=== PATIENT | male | born 1955 | race Caucasian/White ===

== ENCOUNTER 2024-02-03 12:33 | Emergency (ER) | payer MEDICARE, SELFPAY ==
--- NOTE | ~2024-02-03 | XR_ITS ---
EXAMINATION: XR chest 2V DATE: 02/03/2024 13:07 INDICATION: Cough and shortness of breath. TECHNIQUE: Frontal and lateral views of the chest were obtained. COMPARISON: None. FINDINGS: A calcified left lung nodule is consistent with old granulomatous disease. There is no pneu monia, pleural effusion, or pneumothorax. The heart size is normal. There is a chronic compression fr acture in lumbar spine. IMPRESSION: 1. No acute cardiopulmonary disease. Reviewed, dictated and finalized at location A.
[2024-02-03 12:42] VITALS: BP 104/65; PULSE 80; RESP 20; TEMP 36.8; O2SAT 95
[2024-02-03 13:08] LABS: EDINFLUASCREEN Negative (Negative); EDINFLUBSCREEN Negative (Negative)
--- NOTE | 2024-02-03 20:51 | ED.GENADULT ---
HPI - General Adult General Chief complaint: Upper Respiratory Infection Stated complaint: poss walking pnuemonia Time Seen by Provider: 02/03/24 13:01 Source: patient, RN notes reviewed and old records reviewed Mode of arrival: ambulatory Limitations: no limitations History of Present Illness HPI narrative: 60-year-old male to [facility] with complaint of nasal congestion, chest congestion, nonproductive cough for 1 week. Patient states that his throat is sore from coughing so much. Patient concerned for pneumonia and requesting chest x-ray. Patient endorses 1 pack per day for nearly 60 years. Patient history hypertension, diabetes, high cholesterol. Patient denies shortness of breath, fever, abdominal pain, GI complaints, allergies, chest pain, ear pain, nasal drainage. Patient able to tolerate fluids by mouth. Patient resting in exam room in no acute distress. Respirations even and nonlabored. Cough present on exam. Related Data Home Medications Medication Instructions Recorded Confirmed blood sugar diagnostic (Accu-Chek 02/03/24 02/03/24 Yuliana Plus test strips) carvedilol 25 mg tablet mg 02/03/24 famotidine 40 mg tablet mg 02/03/24 glimepiride 4 mg tablet mg 02/03/24 levothyroxine 125 mcg tablet mcg 02/03/24 lisinopril 5 mg tablet mg 02/03/24 metformin 1,000 mg tablet mg 02/03/24 nateglinide 120 mg tablet mg 02/03/24 oxycodone-acetaminophen 10 mg-325 tablet 02/03/24 mg tablet rosuvastatin 40 mg tablet mg 02/03/24 tamsulosin 0.4 mg capsule mg PO 02/03/24 Allergies Allergy/AdvReac Type Severity Reaction Status Date / Time No Known Allergies Allergy Verified 02/03/24 12:53 Review of Systems Review of Systems: All systems reviewed & are unremarkable except as noted in HPI and below Constitutional: Constitutional: Reports no additional constitutional complaints Eyes: Eyes: Reports no additional eye complaints ENT: Reports as per HPI, Reports nasal congestion and Reports sore throat Cardiovascular: Cardiovascular: Reports no additional cardiovascular complaints, Denies chest pain and Denies dyspnea Respiratory: Respiratory: Reports no additional respiratory complaints, Reports chest congestion, Reports cough and Denies dyspnea Musculoskeletal: Musculoskeletal: Reports no additional musculoskeletal complaints Neurologic: Reports system reviewed and no additional complaints, except as documented Psychiatric: Psychiatric: Reports no additional psychiatric complaints PMFSH Comments At the time of my signature, I reviewed and agree with the nursing past medical, surgical, social, and family history. There is no relevant family history pertinent to the patient complaint. Exam Const: General: cooperative, comfortable, no acute distress, alert, ill appearing chronically, tired appearing, well nourished and obese; No acute distress or in distress Nutritional Appearance: well nourished Orientation/consciousness: patient oriented x3 Limitations: no limitations HENMT: Head: normal to inspection Ears: external ears normal Face/Nose/Sinus: Normal external nose present, Normal nares present, normal facial exam, No erythema and No edema Face and sinus: normal facial exam, no erythema and no edema Mouth: Yes Normal oral and palatal mucosa present Throat: posterior oropharynx abnormal erythema and postnasal drainage Eyes: General: appearance normal, both eyes and all related structures Neck: Neck: normal visual inspection, full ROM and no meningeal signs Lymphatic: no lymphadenopathy noted and no lymphedema noted Chest: Chest palpation & inspection: normal inspection of the chest Resp: Effort & Inspection: normal respiratory effort and able to speak in complete sentences Auscultation: crackles on the left and wheezes scattered wheezes Cardio: Jugular venous distension: no JVD Rate: regular rate Rhythm: regular rhythm Back/Spine/Pelvis: Cervical Spine: cervical ROM normal Skin: General
== END 2024-02-03 13:40 | disposition home or self-care (01) ==
PROVIDERS: Emergency Provider Nurse Practitioner Family
DX: J06.9 Acute upper respiratory infection, unspecified (principal); Z20.822 Contact with and (suspected) exposure to COVID-19; I10 Essential (primary) hypertension; E11.9 Type 2 diabetes mellitus without complications; E78.00 Pure hypercholesterolemia, unspecified
CPT/HCPCS: 71046; 87426; 87804; 99213; G0463

== ENCOUNTER 2024-03-25 10:27 | Emergency (ER) | payer MEDICARE, SELFPAY ==
[2024-03-25 10:32] VITALS: BP 150/89; PULSE 80; RESP 20; TEMP 36.4; O2SAT 98
--- NOTE | 2024-03-25 11:04 | ED_ITS ---
HPI - Skin/Abscess/Foreign Bdy General Chief complaint: Skin/Abscess/Foreign Body Stated complaint: Insect Bite/Left Leg Time Seen by Provider: 03/25/24 10:50 Source: patient, RN notes reviewed and old records reviewed Mode of arrival: ambulatory Limitations: no limitations History of Present Illness HPI narrative: 68 year old male presents to [facility] with complaints of what he believes are spider bites to his left upper thigh for the past few days. Patient reports that he has not had any fevers, denies any drainage from scattered red raised areas on left thigh denies any itching states his leg hurts. Patient has not applied any OTC medication to areas or taken any OTC medications for discomfort. He MD complaint: rash and insect bite/sting Onset (ago): day(s) (2) Location: LLE (thigh) Severity scale (1-10): 4 Treatments prior to arrival: none Related Data Home Medications Medication Instructions Recorded Confirmed blood sugar diagnostic (Accu-Chek 02/03/24 02/03/24 Yuliana Plus test strips) carvedilol 25 mg tablet mg 02/03/24 famotidine 40 mg tablet mg 02/03/24 glimepiride 4 mg tablet mg 02/03/24 levothyroxine 125 mcg tablet mcg 02/03/24 lisinopril 5 mg tablet mg 02/03/24 metformin 1,000 mg tablet mg 02/03/24 nateglinide 120 mg tablet mg 02/03/24 oxycodone-acetaminophen 10 mg-325 tablet 02/03/24 mg tablet rosuvastatin 40 mg tablet mg 02/03/24 tamsulosin 0.4 mg capsule mg PO 02/03/24 Allergies Allergy/AdvReac Type Severity Reaction Status Date / Time No Known Allergies Allergy Verified 02/03/24 12:53 Review of Systems Review of Systems: CONSTITUTIONAL: Denies fever, chills, or sweats. CARDIOVASCULAR: Denies chest pain, palpitations, or edema. RESPIRATORY: Denies cough or dyspnea. SKIN: Reports scattered lesions which are red raised circular lesion no pattern no vesicles or pustules no drainage. MUSCULOSKELETAL: Denies joint pain or myalgia. NEUROLOGIC: Denies headache, numbness, or weakness. All systems reviewed & are unremarkable except as noted in HPI and below PMFSH Past Medical History Medical History (Updated 03/26/24 @ 17:11 by Shahrzad Alves NP) Diabetes Elevated cholesterol Hypertension Hypothyroidism Social History Social History (Updated 03/26/24 @ 17:21 by Shahrzad Alves NP) Gender identity (if verbalized by the patient): Male Comments At time of signature, agree with nursing past medical, surgical, social and family history. There is no relevant family history pertinent to the presenting complaint Exam Narrative: GENERAL: Well-appearing, well-nourished, and in no acute distress. HEAD: Normocephalic, atraumatic. EYES: PERRLA, conjunctivae clear, and EOMI. ENT: Mucous membranes moist. Oropharynx without edema, erythema or lesions. NECK: Supple. No lymphadenopathy CHEST: Clear to auscultation. No respiratory distress. SAO2 98% on room air HEART: Regular rate and rhythm. SKIN: Warm, dry.? Red raised maculopapule lesions on left upper thigh no pustules or vesicles, not grouped or in pattern no drainage.denies itching states thigh is sore NEURO:? Alert and oriented x3. PSYCH: Normal mood and affect. Course Course Emergency Course: Patient is aware of diagnosis, understands and agrees to treatment plan.? Anticipatory guidance given.? Patient agrees to follow-up as directed and is aware of reasons to seek care at the emergency department. Portions of this record may have been created with voice recognition software Level of Care: Express Care Visit Vital Signs Vital signs: Vital Signs Temperature 36.4 C L 03/25/24 10:32 Pulse Rate 80 03/25/24 10:32 Respiratory Rate 20 03/25/24 10:32 Blood Pressure 150/89 H 03/25/24 10:32 Pulse Oximetry 98 03/25/24 10:32 Oxygen Delivery Room Air 03/25/24 10:32 Temperature 36.4 C L 03/25/24 10:32 Pulse Rate 80 03/25/24 10:32 Respiratory Rate 20 03/25/24 10:32 Blood Pressure 150/89 H 03/25/24 10:32 Pulse Oximetry 98 03/25/24 10:32 Oxygen Delivery Room Air 03/25/24 10:32 Reviewed MDM - Skin/Abscess/Foreign Bdy MDM Narrative Medical decision making narrative: Does not appear at this time to be erythema multiforme, bullous, SJS, TEN; no evidence at this time to suggest RMSF, endocarditis or Lyme disease; patient looks well, nontoxic and is tolerating oral intake; no neurologic signs or symptoms; no headache, photophobia or neck pain; afebrile; appropriate for initial outpatient treatment; discussed the importance of follow-up, patient agrees; question, viral exanthema, contact dermatitis, allergic dermatitis, eczema, urticaria. No soft palate or uvula edema, no tongue, lip edema or other mucosal involvement, no respiratory compromise, no stridor, no wheezing, no wheezing, no history of syncope, no hypotension, no nausea, vomiting, or diarrhea.? Instructed patient to go to nearest ER immediately for any worsening symptoms including but not limited to: fever, spreading rash, pain, sore throat, headache, dizziness, chest pain, trouble breathing, or any symptoms concerning to the patient. Differential Diagnosis Differential diagnosis: Likely urticaria, cellulitis, insect bites and contact dermatitis Medical Records Attestation: I reviewed the patient's medical records. Critical Care Time Critical Care Time Critical Care Time: No Discharge Plan Discharge Clinical Impression: Insect bite of thigh, left Qualifiers: Encounter type: initial encounter Qualified Code(s): S70.362A - Insect bite (nonvenomous), left thigh, initial encounter Patient Disposition: Home, Self-Care Condition: Stable Instructions: Antibiotic Form, Insect Bite or Sting (ED) Additional Instructions: Wash insect bite areas with warm water and liquid Dial soap twice daily and apply mupirocin ointment watch for increasing infection--redness, swelling, drainage Tylenol or ibuprofen for any fever pain Zyrtec or Claritin daily follow up with PCP in 7-10 days for a wound check recheck if develop fever, chills, increasing symptom Go to the ER if your symptoms become worse of if ANY new symptoms develop Antibiotic as ordered till complete If your symptoms persist, change or worsen significantly before you can contact your personal physician then please, without delay, go to the emergency department for further evaluation. Follow-up with PCP in 7-10 days or sooner if needed Follow up with PCP soon in regards to your blood pressure which is elevated above threshold for referral. Blood pressure above 120/80 may indicate pre-hyp ertension. 150/89 Monitor for any fevers Prescriptions: New mupirocin 2 % ointment 1 applic topical BID Qty: 22 0RF cephalexin 500 mg capsule 500 mg PO Q8H Qty: 21 0RF No Action nateglinide 120 mg tablet carvedilol 25 mg tablet famotidine 40 mg tablet (DME) Accu-Chek Yuliana Plus test strp Strip MISCELLANEOUS oxycodone-acetaminophen 10-325 mg tablet tamsulosin 0.4 mg capsule PO metformin 1,000 mg tablet levothyroxine 125 mcg tablet glimepiride 4 mg tablet lisinopril 5 mg tablet rosuvastatin 40 mg tablet prednisone 20 mg tablet See Rx Instructions .ROUTE .COMPLEX Qty: 9 0RF Rx Instructions: Take 40mg x3 days, 20mg x3 days Follow-up/Referrals: PHYSICIAN NOT ON STAFF,NONSTAFF [Primary Care Provider] - Time of Disposition: 11:11 Quality [place] Coma Scale Eyes: Open Verbal: Oriented and Alert Motor: Follows Commands [place] Coma Total Score: 15
== END 2024-03-25 11:15 | disposition home or self-care (01) ==
PROVIDERS: Emergency Provider Registered Nurse
DX: S70.362A Insect bite (nonvenomous), left thigh, initial encounter (principal); W57.XXXA Bitten or stung by nonvenomous insect and other nonvenomous arthropods, initial encounter; E11.9 Type 2 diabetes mellitus without complications; I10 Essential (primary) hypertension; E78.00 Pure hypercholesterolemia, unspecified; E03.9 Hypothyroidism, unspecified
CPT/HCPCS: 99213; G0463